=== PATIENT | female | born 2000 | race Caucasian/White ===

== ENCOUNTER 2023-07-02 16:40 | Emergency (ER) | payer OTHER ==
[2023-07-02 16:50] VITALS: BP 115/63; O2SAT 100
[2023-07-02] MEDS ORDERED: METOCLOPRAMIDE 10 MG/2 ML VIAL IVP STA (16:57)
[2023-07-02] MEDS ORDERED: SODIUM CHLORIDE 0.9% 1,000 ML IV STA (16:57)
--- NOTE | 2023-07-02 16:57 | ED Physician Documentation ---
History of Present Illness - Stated complaint Stated Complaint: PREG/LIGHTHEADED - Chief complaint Chief Complaint: General - History obtained from History obtained from: Patient - Additonal information Additional information: 23-year-old G5 now G6, P1 with history of 4 miscarriages. 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 A few days ago was at a care clinic and was told that she had intrauterine demise with a 7-week gestation despite having 9-week dates. She is feeling sick nauseous and vomiting and would like to speed up the process of inevitable miscarriage so she is not feeling so bad. PD PAST MEDICAL HISTORY - Past Medical History Past Medical History: No - Past Surgical History Past Surgical History: No - Present Medications Home Medications: Ambulatory Orders Medication Instructions Recorded Confirmed Metoclopramide [Reglan] 10 mg PO Q6H PRN #20 tablet 07/02/23 - Allergies Allergies/Adverse Reactions: Allergies Allergy/AdvReac Type Severity Reaction Status Date / Time No Known Drug Allergies Allergy Verified 07/02/23 16:48 - Social History Does the pt smoke?: No Smoking Status: Never smoker Does the pt drink ETOH?: No Does the pt have substance abuse?: No - Immunizations Immunizations are current?: Yes PD ED PE NORMAL - Vitals Vital signs reviewed: Yes - General General: Alert and oriented X 3, No acute distress - Abdomen Abdomen: Normal bowel sounds, Soft, Non tender - Neuro Neuro: Alert and oriented X 3, Normal speech Results - Vitals Vitals: Vital Signs - 24 hr 07/02/23 16:45 Temperature 37.1 C Heart Rate 82 Respiratory 14 Rate Blood Pressure 115/63 O2 Saturation 100 Oxygen O2 Source Room air - Labs Labs: Laboratory Tests 07/02/23 07/02/23 17:01 17:01 WBC 9.4 RBC 4.56 Hgb 13.6 Hct 39.4 MCV 86.4 MCH 29.8 MCHC 34.5 RDW 12.2 Plt Count 194 MPV 9.6 Neut # (Auto) 5.9 Lymph # (Auto) 2.7 [place] # (Auto) 0.5 Eos # (Auto) 0.2 Baso # (Auto) 0.0 Absolute Nucleated RBC 0.00 Nucleated RBC % 0.0 Sodium 135 Potassium 3.5 Chloride 102 Carbon Dioxide 26 Anion Gap 7.0 BUN 16 Creatinine 0.6 Estimated GFR (MDRD) 123 Glucose 87 Calcium 9.3 Total Bilirubin 0.5 AST 18 ALT 23 Alkaline Phosphatase 42 Total Protein 7.1 Albumin 4.4 Globulin 2.7 Albumin/Globulin Ratio 1.6 PD Medical Decision Making - ED course ED course: 23-year-old woman who presents with a history consistent with missed and having hyperemesis with dehydration. We will give IV fluids and antiemetics. She would like something to speed up the process of missed , I will repeat a formal ultrasound as I would not be comfortable giving abortifacients if the previous ultrasound was inaccurate given that she does want to be . 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 She was feeling much better with regards to her hyperemesis after some IV fluids and Reglan and I discussed the case with Dr. Alana Taylor, our PUBLIC INTERVIEWER who recommends misoprostal 800 mcg PV x1 and they will call her next week for follow-up. Departure - Departure Disposition: 01 Home, Self Care Clinical Impression: Missed Condition: Good Record reviewed to determine appropriate education?: Yes Instructions: ED Miscarriage Incom Follow-[facility]: [facility] [Provider Group] Prescriptions: Metoclopramide [Reglan] 10 mg PO Q6H PRN #20 tablet PRN Reason: nausea or headache Comments: Unfortunately, our ultrasound confirmed the prior diagnosis of a missed or incomplete . Our PUBLIC INTERVIEWER on-call recommended misoprostal which was given here. They will reach out to you next week for follow-up. Return if worse. Forms: PCP List
[2023-07-02 17:14] LABS: BASOPHILS % (AUTO) 0.3 %; EOSINOPHILS # (AUTO) 0.2 10^3/uL (0.0-0.7); EOSINOPHILS % (AUTO) 1.7 %; HCT - HEMATOCRIT 39.4 % (37.0-47.0); HGB - HEMOGLOBIN 13.6 g/dL (12.0-16.0); LYMPHOCYTES # (AUTO) 2.7 10^3/uL (1.5-3.5); LYMPHOCYTES % (AUTO) 28.4 %; MEAN CORPUSCULAR HEMOGLOBIN 29.8 pg (27.0-31.0); MEAN CORPUSCULAR HGB CONC 34.5 g/dL (32.0-36.0); MEAN CORPUSCULAR VOLUME 86.4 fL (81.0-99.0); MEAN PLATELET VOLUME 9.6 fL (7.9-10.8); MONOCYTES # (AUTO) 0.5 10^3/uL (0.0-1.0); MONOCYTES % (AUTO) 5.8 %; NEUTROPHILS # (AUTO) 5.9 10^3/uL (1.5-6.6); NEUTROPHILS % (AUTO) 63.5 %; PLT - PLATELET COUNT 194 10^3/uL (130-450); RED BLOOD COUNT 4.56 10^6/uL (4.20-5.40); RED CELL DISTRIBUTION WIDTH 12.2 % (12.0-15.0); WHITE BLOOD COUNT 9.4 x10^3/uL (4.8-10.8)
[2023-07-02 17:27] LABS: ALBUMIN 4.4 g/dL (3.2-5.5); ALBUMIN/GLOBULIN RATIO 1.6 (1.0-2.2); BILIRUBIN,TOTAL 0.5 mg/dL (0.2-1.0); CALCIUM 9.3 mg/dL (8.5-10.3); CREATININE 0.6 mg/dL (0.6-1.3); POTASSIUM 3.5 mmol/L (3.5-4.5); TOTAL PROTEIN 7.1 g/dL (6.4-8.9)
[2023-07-02] MEDS ORDERED: miSOPROStoL 200 MCG TABLET VG STA (17:37)
--- NOTE | 2023-07-02 17:55 | PROVIDER PROGRESS NOTE ---
Subjective - Prog Note Date Prog Note Date: 07/02/23 - Subjective Subjective: spoke with Dr. Garcia about patient. IUD out and now . 4 sab, 1 live . LMP 04/23. us with non viable . 7w4d size. recommend 800 mcg vaginal miso and we will follow up with her next week. she is not a pateint in [place]. no way to give mifepristine in ER that either of us know of Objective - Vital Signs/Intake & Output Vital Signs: Vital Signs x48h Temp Pulse Resp BP Pulse Ox 07/02/23 16:45 98.8 F 82 14 115/63 100 - Lab Results Fish Bones: 07/02/23 17:01 07/02/23 17:01 Other Labs: Lab Results x24hrs 07/02/23 07/02/23 Range/Units 17:01 17:01 WBC 9.4 (4.8-10.8) x10^3/uL RBC 4.56 (4.20-5.40) 10^6/uL Hgb 13.6 (12.0-16.0) g/dL Hct 39.4 (37.0-47.0) % MCV 86.4 (81.0-99.0) fL MCH 29.8 (27.0-31.0) pg MCHC 34.5 (32.0-36.0) g/dL RDW 12.2 (12.0-15.0) % Plt Count 194 (130-450) 10^3/uL MPV 9.6 (7.9-10.8) fL Neut # (Auto) 5.9 (1.5-6.6) 10^3/uL Lymph # (Auto) 2.7 (1.5-3.5) 10^3/uL [place] # (Auto) 0.5 (0.0-1.0) 10^3/uL Eos # (Auto) 0.2 (0.0-0.7) 10^3/uL Baso # (Auto) 0.0 (0.0-0.1) 10^3/uL Absolute Nucleated RBC 0.00 x10^3/uL Nucleated RBC % 0.0 /100WBC Sodium 135 (135-145) mmol/L Potassium 3.5 (3.5-4.5) mmol/L Chloride 102 (101-111) mmol/L Carbon Dioxide 26 (21-32) mmol/L Anion Gap 7.0 (6-13) BUN 16 (6-20) mg/dL Creatinine 0.6 (0.6-1.3) mg/dL Estimated GFR (MDRD) 123 (>89) Glucose 87 (74-104) mg/dL Calcium 9.3 (8.5-10.3) mg/dL Total Bilirubin 0.5 (0.2-1.0) mg/dL AST 18 (10-42) IU/L ALT 23 (10-60) IU/L Alkaline Phosphatase 42 (42-121) IU/L Total Protein 7.1 (6.4-8.9) g/dL Albumin 4.4 (3.2-5.5) g/dL Globulin 2.7 (2.1-4.2) g/dL Albumin/Globulin Ratio 1.6 (1.0-2.2) Beta HCG, Quant 213830.5 mIU/mL
--- NOTE | 2023-07-02 18:39 | Ultrasound Report ---
PROCEDURE: OB First Trimester w/TV INDICATIONS: missed ab OUTSIDE/PRIOR DATING DATA: Last menstrual period (LMP): 04/23/2023. LMP-based estimated date of delivery (PADDY): 01/28/2024. First dating scan (date and location): 07/02/2023. Estimated date of delivery (PADDY) from first dating scan: Not applicable. TECHNIQUE: Real-time scanning was performed of the fetus and maternal pelvic organs, with image documentation. Endovaginal scanning was also performed to better visualize the fetus and maternal ovaries. COMPARISON: None. FINDINGS: Intrauterine gestational sac present. Embryo: Fetus is seen with crown-rump length measures 1.3 cm. Estimated gestational age is 7 weeks 4 days. Heart rate: No cardiac activity is detected. Other: No perigestational fluid collection. Measurement variability in dating: +/- 4 weeks by LMP, +/- 7 days by mean sac diameter (use before 6 weeks gestation if crown-rump length not able to be measured), +/- 5 days by crown-rump length (6-12 weeks gestation). Maternal organs: Ovaries appear within normal limits. IMPRESSION: 1. Single intrauterine gestational sac with fetus seen. No yolk sac is seen. Estimated gestational ag e based on current study is 7 weeks, 4 days. No cardiac activity is detected. Finding is sugges tive of intrauterine demise. Correlation with serial beta-hCG levels and follow-up ultrasound i s recommended. Reviewed by: Juan M Zambrano MD on 07/02/2023 6:37 PM PDT Approved by: Juan M Zambrano MD on 07/02/2023 6:37 PM PDT Station ID: [id number]
== END 2023-07-02 18:02 | disposition home or self-care (01) ==
LOC: ED 16:40
DX: O02.1 Missed abortion (principal); R11.10 Vomiting, unspecified; E86.0 Dehydration
CPT/HCPCS: 36415; 76801; 76817; 80053; 84702; 85025; 96374; 99283; 99284; A9270; J2765

== ENCOUNTER 2024-02-28 12:45 | Outpatient (CLI) | payer OTHER ==
--- NOTE | 2024-02-28 15:31 | XRAY Report ---
PROCEDURE: Knee 3V RT INDICATIONS: KNEE PAIN, RIGHT, CHRONIC TECHNIQUE: 3 views of the knee(s) were acquired. COMPARISON: None. FINDINGS: Bones: No high-grade degenerative changes or acute displaced fracture or dislocation Soft tissues: Possible joint effusion IMPRESSION: No acute osseous abnormality on radiography. There is a possible joint effusion. If there is high con cern for further derangement, consider MRI evaluation. Reviewed by: Justin Murphy MD on 02/28/2024 3:29 PM PDT Approved by: Justin Murphy MD on 02/28/2024 3:29 PM PDT Station ID: [id number]
== END 2024-02-28 13:00 | disposition home or self-care (01) ==
LOC: DI.N 12:45
PROVIDERS: ATTEND Physician Assistant
DX: M25.561 Pain in right knee (principal)

== ENCOUNTER 2024-03-21 13:55 | Outpatient (CLI) | payer OTHER ==
--- NOTE | 2024-03-22 08:27 | MRI Report ---
PROCEDURE: Knee RT WO INDICATIONS: R KNEE INSTABILITY TECHNIQUE: Noncontrast sagittal PD fast spin echo and T2 fast spin echo with fat saturation, sagittal 3-D spoile d GE with fat saturation; coronal T1 spin echo and PD fast spin echo with fat saturation, and axial P D fast spin echo with fat saturation through the knee. COMPARISON: Right knee radiographs 02/28/2024. FINDINGS: Image quality: Excellent. Anterior cruciate ligament: Intact. Posterior cruciate ligament: Intact. Medial collateral ligament: Intact. Lateral collateral ligament: Intact. Medial meniscus: Intact. Lateral meniscus: Intact. Medial and lateral tendons: The semimembranosus tendon insertions appear intact. Visualized portion s of the pes anserinus tendons appear normal. The popliteus tendon appears intact. Iliotibial band appears normal. Anterior structures: The patellar tendon and the distal quadriceps tendon appear intact. Mildly aylin enitally shallow trochlear groove is seen with lateral patellar tilting but no significant patellar s ubluxation. Tibial tubercle-trochlear groove distance is borderline at 1.8 cm. No edema in the infrap atellar fat pad. Medial patellofemoral ligament appears grossly intact. No osseous contusions to sug gest recent patellar instability. Bones: No acute trabecular bone injury or fracture. Medial femorotibial cartilage: Intact. Lateral femorotibial cartilage: Intact. Patellofemoral cartilage: Intact. Soft tissues: There is a small joint effusion. There is a trace medial popliteal cyst. The musculat ure surrounding the knee is normal in bulk. IMPRESSION: 1.No acute trabecular bone injury. Cruciate and collateral ligaments are intact. No meniscal tear or focal cartilage defect is seen. 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 Borderline tibial tubercle-trochlear groove distance measuring 1.8 cm. 3.Small joint effusion. Reviewed by: Beka Espinosa MD on 03/22/2024 8:26 AM PDT Approved by: Beka Espinosa MD on 03/22/2024 8:26 AM PDT Station ID: [id number]
== END 2024-03-21 13:56 | disposition home or self-care (01) ==
LOC: DI 13:55
PROVIDERS: ATTEND Student in an Organized Health Care Education/Training Program
DX: M25.361 Other instability, right knee (principal); M25.461 Effusion, right knee